=== PATIENT | male | born 1945 | race Caucasian/White ===

== ENCOUNTER 2024-09-02 12:01 | Inpatient (IN) | payer MEDICARE, OTHER ==
[2024-09-02] MEDS ORDERED: Dextrose 10% in Water 250 ML ONE (12:05)
[2024-09-02] MEDS ORDERED: Iopamidol-370 76% 500 ML MDV (1 ML CHARGE) ONE (12:06)
[2024-09-02 12:20] LABS: #Basophils Less than 0.03 10x3/uL (0.0-0.2); #Eosinophils Less than 0.03 10x3/uL (0.0-0.7); %Basophils 0.2 % (0.0-1.0); %Eosinophils 0.1 % (0.0-10.0); %Monocytes 5.9 % (0.0-10.0); %Neutrophils 88.4 % (42.0-75.0); Hematocrit 35.7 % (42.0-52.0); Hemoglobin 11.8 g/dL (14.0-18.0); Mean Corpuscular HGB CONC 33.1 g/dL (32.0-36.0); Mean Corpuscular Hemoglobin 28.6 pg (27.0-31.0); Mean Corpuscular Volume 86.7 fL (78.0-98.0); Mean Platelet Volume 11.4 fL (7.4-10.4); Platelet Count 270 10x3/uL (130-400); Red Blood Cell (RBC) Count 4.12 mill/uL (4.70-6.10)
[2024-09-02 12:36] LABS: INR-International Normal Ratio 1.1; Prothrombin Time 13.7 sec (12.0-14.7)
[2024-09-02 12:37] LABS: PTT 34.2 sec (22.9-36.1)
[2024-09-02 12:42] LABS: ALT (SGPT) 17 U/L (8-55); AST (SGOT) 20 U/L (5-34); Albumin 2.8 g/dL (3.4-4.8); Alkaline Phosphatase 40 U/L (40-110); Anion Gap 15 mmol/L (10-20); BUN (Urea Nitrogen) 49 mg/dL (8.4-25.7); Bilirubin, Total 0.4 mg/dL (0.2-1.2); Calc. Creatinine Clearance 0 mL/min (70-130); Calcium 6.4 mg/dL (7.8-10.44); Carbon Dioxide 21 mmol/L (23-31); Chloride 108 mmol/L (98-107); Estimated GFR 16; Globulin 3.9 g/dL (2.4-3.5); Glucose 64 mg/dL (83-110); Potassium 4.1 mmol/L (3.5-5.1); Protein, Total 6.7 g/dL (5.8-8.1); Sodium 140 mmol/L (136-145)
[2024-09-02] MEDS ORDERED: Dextrose 50% Abboject 50 ML SYRINGE SLOW IVP PRN (14:08)
[2024-09-02] MEDS ORDERED: Dextrose 5% in Water 1,000 ML IV PRN (14:08)
[2024-09-02] MEDS ORDERED: Glucagon 1 MG/ML KIT IM PRN (14:08)
[2024-09-02 14:24] LABS: Bacteria/HPF None Seen HPF (None Seen); Bilirubin Negative (Negative); Blood, Urine 2+ (Negative); CAUTI Indications for Culture Alt mental st,lethar; Clarity Clear (Clear); Glucose, Urine (Dipstick) 70 mg/dL (Negative); Ketone, Urine Negative (Negative); Leukocyte Negative Leu/uL (Negative); Nitrite Negative (Negative); Protein, Urine (Dipstick) 300 mg/dL (Neg-Trace); Specific Gravity, Urine 1.021 (1.002-1.036); Squamous Epithelial 0-3 HPF (0-3); Urine Culture Reflex No No; Urobilinogen Normal mg/dL (Less than 2); WBC/HPF 0-3 HPF (0-3)
[2024-09-02 15:13] LABS: Phosphorus 3.9 mg/dL (2.3-4.7)
[2024-09-02 15:54] LABS: Troponin I 0.047 ng/mL (< 0.028)
[2024-09-02 16:06] VITALS: BMI 30.5
[2024-09-02 16:52] LABS: Amphetamine Not Detected (NotDetected); Barbiturates Screen Not Detected (NotDetected); Benzodiazepine Screen Not Detected (NotDetected); Cocaine Metabolite Screen Not Detected (NotDetected); Methadone Not Detected (NotDetected); Methamphetamine Not Detected (NotDetected); Opiate Screen Detected (NotDetected); Oxycodone Screen Not Detected (NotDetected); Phencyclidine (PCP) Not Detected (NotDetected); THC/Cannabinoid Screen Not Detected (NotDetected); Tricyclic Screen Not Detected (NotDetected)
[2024-09-02] MEDS: Lactated Ringer's 1,000 ML IV SCH (17:10)
[2024-09-02 19:50] LABS: Troponin I 0.069 ng/mL (< 0.028)
[2024-09-02] MEDS: Famotidine 20 MG TAB PO SCH (20:34)
[2024-09-02] MEDS: Calcium Carbonate 500 MG ChewTAB PO SCH (20:34)
[2024-09-02] MEDS: Rosuvastatin 20 MG TAB PO SCH (20:35)
[2024-09-02] MEDS: Heparin 5,000 UNITS/ML VIAL SC SCH (20:36)
[2024-09-02] MEDS ORDERED: Atorvastatin Calcium 40 MG TAB PO SCH (21:00)
[2024-09-02] MEDS: traMADol HCl 50 MG TAB PO PRN (21:47)
[2024-09-03] MEDS: HYDROcodone/Acetaminophen 10/325 mg Tablet PO SCH (01:34)
[2024-09-03 04:00] LABS: #Basophils Less than 0.03 10x3/uL (0.0-0.2); #Eosinophils Less than 0.03 10x3/uL (0.0-0.7); %Basophils 0.1 % (0.0-1.0); %Eosinophils 0.1 % (0.0-10.0); %Monocytes 7.5 % (0.0-10.0); %Neutrophils 84.8 % (42.0-75.0); Hematocrit 31.4 % (42.0-52.0); Hemoglobin 10.8 g/dL (14.0-18.0); Mean Corpuscular HGB CONC 34.4 g/dL (32.0-36.0); Mean Corpuscular Hemoglobin 28.6 pg (27.0-31.0); Mean Corpuscular Volume 83.3 fL (78.0-98.0); Mean Platelet Volume 11.3 fL (7.4-10.4); Platelet Count 236 10x3/uL (130-400); RBC Distribution Width 14.8 % (11.5-14.5); Red Blood Cell (RBC) Count 3.77 mill/uL (4.70-6.10)
[2024-09-03 04:26] LABS: Anion Gap 18 mmol/L (10-20); BUN (Urea Nitrogen) 37 mg/dL (8.4-25.7); Calc. Creatinine Clearance 23 mL/min (70-130); Calcium 6.5 mg/dL (7.8-10.44); Carbon Dioxide 18 mmol/L (23-31); Cardiac Risk 4.7 (Less than 4.5); Chloride 107 mmol/L (98-107); Cholesterol 109 mg/dl (< 200 Desired); Estimated GFR 18; Glucose 89 mg/dL (83-110); HDL Cholesterol 23 mg/dL (>60 Neg Risk); LDL Cholesterol, Calculated 45 mg/dL; Potassium 3.5 mmol/L (3.5-5.1); Sodium 139 mmol/L (136-145); Triglycerides 206 mg/dL (Less than 150)
[2024-09-03] MEDS: Levothyroxine Sodium 100 MCG TAB PO SCH (05:08)
[2024-09-03] MEDS: hydrALAZINE 25 MG TAB PO SCH (09:23)
[2024-09-03] MEDS: Isosorbide Mononitrate 60 MG ER.TAB PO SCH (09:26)
[2024-09-03] MEDS: Clopidogrel Bisulfate 75 MG TAB PO SCH (09:26)
[2024-09-03] MEDS: Aspirin 81 mg Enteric Coated Tablet PO SCH (09:26)
[2024-09-03] MEDS: Calcitriol 0.25 MCG CAP PO SCH (09:26)
[2024-09-03] MEDS: Calcium Carbonate 500 MG ChewTAB PO SCH (09:29)
[2024-09-03] MEDS: Morphine 4 MG/ML VIAL SLOW IVP SCH (13:19)
[2024-09-03] MEDS: methylPREDNISolone Sod Succ/PF 125 MG/2 ML VIAL IVP SCH (13:20)
[2024-09-03] MEDS: traMADol HCl 50 MG TAB PO PRN (17:28)
[2024-09-03] MEDS: Metoprolol Tartrate 25 MG TAB PO SCH (18:56)
[2024-09-03] MEDS: Insulin Regular, Human 100 UNIT/ML 10 ML VIAL SC PRN (19:00)
[2024-09-03] MEDS: Acetaminophen 325 MG TAB PO PRN (20:40)
[2024-09-04 04:12] LABS: #Basophils Less than 0.03 10x3/uL (0.0-0.2); #Eosinophils Less than 0.03 10x3/uL (0.0-0.7); %Basophils 0.1 % (0.0-1.0); %Lymphocytes 7.7 % (21.0-51.0); %Monocytes 8.6 % (0.0-10.0); %Neutrophils 83.1 % (42.0-75.0); Hemoglobin 10.3 g/dL (14.0-18.0); Mean Corpuscular HGB CONC 33.2 g/dL (32.0-36.0); Mean Corpuscular Hemoglobin 28.5 pg (27.0-31.0); Mean Corpuscular Volume 85.9 fL (78.0-98.0); Platelet Count 228 10x3/uL (130-400); RBC Distribution Width 14.9 % (11.5-14.5); Red Blood Cell (RBC) Count 3.61 mill/uL (4.70-6.10)
[2024-09-04 04:40] LABS: Anion Gap 16 mmol/L (10-20); BUN (Urea Nitrogen) 41 mg/dL (8.4-25.7); Calc. Creatinine Clearance 24 mL/min (70-130); Calcium 7.2 mg/dL (7.8-10.44); Carbon Dioxide 22 mmol/L (23-31); Chloride 105 mmol/L (98-107); Estimated GFR 19; Glucose 125 mg/dL (83-110); Iron 14 ug/dL (65-175); Iron Binding Capacity, Total 190 mcg/dL (261-462); Potassium 3.8 mmol/L (3.5-5.1); Sodium 139 mmol/L (136-145)
[2024-09-04] MEDS: Metoprolol Tartrate 25 MG TAB PO SCH ×2 (08:10→21:13)
[2024-09-04] MEDS: Ferrous Sulfate 325 MG TAB PO SCH (08:10)
[2024-09-04] MEDS: predniSONE 20 MG TAB PO SCH (11:06)
[2024-09-04] MEDS: HYDROcodone/Acetaminophen 10/325 mg Tablet PO PRN (11:06)
[2024-09-04] MEDS: Losartan 25 MG TAB PO SCH (11:07)
[2024-09-04 15:45] LABS: Reference Lab Name LABCORP
[2024-09-04] MEDS: hydrALAZINE 25 MG TAB PO SCH (15:55)
[2024-09-05] MEDS: hydrALAZINE 20 MG/ML VIAL SLOW IVP PRN (04:12)
[2024-09-05 04:23] LABS: #Basophils Less than 0.03 10x3/uL (0.0-0.2); #Eosinophils Less than 0.03 10x3/uL (0.0-0.7); %Basophils 0.1 % (0.0-1.0); %Eosinophils 0.1 % (0.0-10.0); %Lymphocytes 7.1 % (21.0-51.0); %Monocytes 7.8 % (0.0-10.0); Hematocrit 28.6 % (42.0-52.0); Hemoglobin 9.7 g/dL (14.0-18.0); Mean Corpuscular HGB CONC 33.9 g/dL (32.0-36.0); Mean Corpuscular Hemoglobin 28.6 pg (27.0-31.0); Mean Corpuscular Volume 84.4 fL (78.0-98.0); Mean Platelet Volume 11.1 fL (7.4-10.4); Platelet Count 244 10x3/uL (130-400); RBC Distribution Width 14.6 % (11.5-14.5); Red Blood Cell (RBC) Count 3.39 mill/uL (4.70-6.10)
[2024-09-05 04:49] LABS: Anion Gap 16 mmol/L (10-20); BUN (Urea Nitrogen) 46 mg/dL (8.4-25.7); Calc. Creatinine Clearance 25 mL/min (70-130); Calcium 7.4 mg/dL (7.8-10.44); Carbon Dioxide 22 mmol/L (23-31); Chloride 105 mmol/L (98-107); Estimated GFR 20; Glucose 135 mg/dL (83-110); Potassium 3.7 mmol/L (3.5-5.1); Sodium 139 mmol/L (136-145)
[2024-09-05] MEDS: Magnesium Sulfate In Water 4 GM in Premix 1 BAG IVPB SCH (05:39)
[2024-09-05] MEDS: hydrALAZINE 25 MG TAB PO SCH (08:23)
[2024-09-05] MEDS: Carvedilol 6.25 MG TAB PO SCH (08:24)
[2024-09-05] MEDS: predniSONE 20 MG TAB PO SCH (08:24)
[2024-09-05] MEDS: Losartan 25 MG TAB PO SCH (08:25)
[2024-09-05 11:30] LABS: Magnesium 2.1 mg/dL (1.6-2.6)
[2024-09-05 16:44] VITALS: BP 179/73; TEMP 97.8
[2024-09-06 12:13] LABS: ANA Symphony (Qualitative) Negative (Negative); ANA Symphony (Quantitative) Less than 0.1 Ratio (< 0.7 Negative); dsDNA IgG Antibody Less than 0.6 IU/mL (<10 Negative)
== END 2024-09-05 16:53 | disposition home or self-care (01) | DRG 69 ==
LOC: ERS 12:01 → 2SE 13:21 → OBSVTOIN 09-03 17:23
PROVIDERS: ADMIT Student in an Organized Health Care Education/Training Program; ATTEND Hospitalist
DX: G45.9 Transient cerebral ischemic attack, unspecified (principal); N18.4 Chronic kidney disease, stage 4 (severe); N17.9 Acute kidney failure, unspecified; N25.81 Secondary hyperparathyroidism of renal origin; I47.19 Other supraventricular tachycardia; I12.9 Hypertensive chronic kidney disease with stage 1 through stage 4 chronic kidney disease, or unspecified chronic kidney disease; E11.22 Type 2 diabetes mellitus with diabetic chronic kidney disease; Z79.82 Long term (current) use of aspirin; Z79.899 Other long term (current) drug therapy; Z86.73 Personal history of transient ischemic attack (TIA), and cerebral infarction without residual deficits; F41.9 Anxiety disorder, unspecified; F32.A Depression, unspecified; Z90.49 Acquired absence of other specified parts of digestive tract; E78.5 Hyperlipidemia, unspecified; Z79.4 Long term (current) use of insulin; Z79.01 Long term (current) use of anticoagulants; E83.51 Hypocalcemia; M10.9 Gout, unspecified; I73.9 Peripheral vascular disease, unspecified; E11.51 Type 2 diabetes mellitus with diabetic peripheral angiopathy without gangrene
CPT/HCPCS: 36415; 36416; 70450; 70496; 70498; 70551; 71045; 76770; 80048; 80053; 80061; 80306; 81001; 82306; 82728; 83036; 83540; 83550; 83735; 83970; 84100; 84443; 84484; 84550; 85025; 85610; 85730; 86038; 86225; 93005; 93010; 93306; 94760; 96372; 96374; 96375; G0378; J0360; J1644; J1815; J2270; J2919; J3475; J7120; J7512; Q9967